=== PATIENT | female | born 1965 | race African-American/Black ===

== ENCOUNTER 2019-12-18 18:28 | Emergency (ER) | payer OTHER, SELFPAY ==
--- NOTE | 2019-12-18 18:41 | ED.GENADULT ---
HPI - General Adult General Chief complaint: Skin/Abscess/Foreign Body Stated complaint: insect bite Time Seen by Provider: 12/18/19 19:00 Source: patient Mode of arrival: ambulatory Limitations: no limitations History of Present Illness HPI narrative: 54-year-old female patient presents to the [facility] with complaints of multiple insect bites to the chest as well as the left arm. Patient states that the one on the left arm is swollen, warm and tender to the touch. Denies any chest pain or shortness of breath. Denies any fevers. Patient states that she got bit yesterday. Patient states she has tried taking Benadryl but continues to have itching to the area. Related Data Home Medications Medication Instructions Recorded Confirmed Flonase Allergy Relief 12/18/19 Singulair 12/18/19 amlodipine 12/18/19 atenolol 12/18/19 hydrochlorothiazide 12/18/19 loratadine 12/18/19 Allergies Allergy/AdvReac Type Severity Reaction Status Date / Time No Known Allergies Allergy Verified 05/18/17 14:10 Review of Systems Review of Systems: Narrative: CONSTITUTIONAL: Denies fever, chills, or sweats. EYES: Denies visual changes, redness, or discharge. ENT: Denies rhinorrhea, congestion, sore throat, or otalgia. CARDIOVASCULAR: Denies chest pain, palpitations, or edema. RESPIRATORY: Denies cough or dyspnea. GASTROINTESTINAL: Denies abdominal pain, nausea, vomiting, or diarrhea. GENITOURINARY: Denies dysuria or hematuria. SKIN: Denies rash or itching. Positive insect bite to chest and left arm MUSCULOSKELETAL: Denies back pain, joint pain, or myalgia. NEUROLOGIC: Denies headache, numbness, or weakness. PSYCHIATRIC: Denies anxiety or depression. [facility] Family History Family History Mother Hypertension Family history of diabetes mellitus in first degree relative Family history of lung cancer Father Hypertension Family history of diabetes mellitus in first degree relative Social History Social History Smoking status: Never smoker Second hand tobacco smoke exposure: No Alcohol intake: current Comments At the time of my signature I agree with nursing past medical history, surgical, social, and family history. There is no relevant family history pertinent to the presenting complaint. Exam Narrative: Exam Narrative: GENERAL: Well-appearing, well-nourished, and in no acute distress. HEAD: Normocephalic, atraumatic. EYES: PERRLA and EOMI. ENT: Nares clear, no rhinorrhea or epistaxis. Mucous membranes moist. Posterior pharynx with no erythema, tonsillectomy, exudates or lesions present. NECK: Supple. No lymphadenopathy CHEST: Clear to auscultation. No respiratory distress. Patient able talk in clear complete sentences. HEART: Regular rate and rhythm. No murmur heard. Normal peripheral pulses. ABDOMEN: Soft, nontender, nondistended, normal active bowel sounds. EXTREMITIES: Normal range of motion. No edema. SKIN: Warm, dry, no rash. Patient has multiple insect bites to the upper chest with raised wheals. There is another insect bite noted to the left upper extremity right above the bend of the elbow. There is surrounding erythema and warmth as well as swelling. The erythema measures approximately 14 to 15 cm. NEURO: No focal deficits. Alert and oriented x3. Course Vital Signs Vital signs: Vital Signs Temperature 36.6 C 12/18/19 18:49 Pulse Rate 78 12/18/19 18:49 Respiratory Rate 18 12/18/19 18:49 Blood Pressure 127/88 12/18/19 18:49 Pulse Oximetry 100 12/18/19 18:49 Temperature 36.6 C 12/18/19 18:49 Pulse Rate 78 12/18/19 18:49 Respiratory Rate 18 12/18/19 18:49 Blood Pressure 127/88 12/18/19 18:49 Pulse Oximetry 100 12/18/19 18:49 Vital signs reviewed. The patient has been informed that they may have pre-hypertension or Hypertension based on a BP reading in t
[2019-12-18 18:49] VITALS: BP 127/88; PULSE 78; RESP 18; TEMP 36.6; O2SAT 100
== END 2019-12-18 19:11 | disposition home or self-care (01) ==
PROVIDERS: Emergency Provider Nurse Practitioner Family; PCP Registered Nurse
DX: T63.484A Toxic effect of venom of other arthropod, undetermined, initial encounter (principal); L03.114 Cellulitis of left upper limb; L23.9 Allergic contact dermatitis, unspecified cause; I10 Essential (primary) hypertension
CPT/HCPCS: 99213; G0463

== ENCOUNTER 2020-09-17 09:44 | Emergency (ER) | payer OTHER, SELFPAY ==
--- NOTE | 2020-09-17 10:01 | ED.URI ---
HPI - URI/Sore Throat General Chief Complaint: Upper Respiratory Infection Stated Complaint: sinus infection Time Seen by Provider: 09/17/20 10:01 Source: patient and RN notes reviewed History of Present Illness HPI Narrative: Patient is a 55-year-old female who presents the urgent care with complaints of chronic allergies. Patient states that she does have chronic eyedrops and is currently out of her prescription eyedrops. Patient states she takes a daily allergy medication which does not seem to be improving symptoms. States the last 3 days have been terrible with the postnasal drainage and clear eye drainage. Patient denies of any new URI symptoms. Denies of any fever, chills, vomiting, cough, shortness of breath. No other acute complaints. No acute distress noted. Patient aware of the plan of care. Some parts of this dictation were generated by voice recognition software and may contain typographical and/or grammatical inaccuracies. Related Data Home Medications Medication Instructions Recorded Confirmed Flonase Allergy Relief 12/18/19 Singulair 12/18/19 amlodipine 5 mg PO DAILY 12/18/19 atenolol 50 mg PO DAILY 12/18/19 hydrochlorothiazide 25 mg PO DAILY 12/18/19 loratadine 12/18/19 Allergies Allergy/AdvReac Type Severity Reaction Status Date / Time No Known Allergies Allergy Verified 05/18/17 14:10 Review of Systems Review of Systems: Narrative: CONSTITUTIONAL: Denies fever, chills, or sweats. EYES: Denies visual changes, redness. Reports of bilateral eye irritation and watery eyes ENT: Reports of acute on chronic postnasal drainage CARDIOVASCULAR: Denies chest pain, palpitations, or edema. RESPIRATORY: Denies cough or dyspnea. GASTROINTESTINAL: Denies abdominal pain, nausea, vomiting, or diarrhea. GENITOURINARY: Denies dysuria or hematuria. SKIN: Denies rash or itching. MUSCULOSKELETAL: Denies back pain, joint pain, or myalgia. NEUROLOGIC: Denies headache, numbness, or weakness. All other systems reviewed are negative, except as documented in HPI. [facility] Family History Family History Mother Hypertension Family history of diabetes mellitus in first degree relative Family history of lung cancer Father Hypertension Family history of diabetes mellitus in first degree relative Social History Social History Smoking status: Never smoker Second hand tobacco smoke exposure: No Alcohol intake: current Comments At the time of my signature, I reviewed and agree with the nursing past medical, surgical, social, and family history. There is no relevant family history pertinent to the patient complaint. Exam Narrative: Exam Narrative: GENERAL: This is a well-nourished, well-developed patient, in no apparent distress. HEAD: normocephalic, atraumatic. EYES: PERRL. Sclera clear/white. Vision is grossly intact. Mild bilateral injected conjunctivo with clear bilateral drainage EARS: External ears normal, auditory canals clear and without drainage, TMs normal without perforation. Hearing grossly intact. NOSE: External nose normal with no obvious nasal discharge, nares without redness, no rhinorrhea. THROAT: Mucous membranes moist, posterior pharynx clear. Moderate postnasal drainage. NECK: Neck supple CARDIOVASCULAR: Regular rate and rhythm without murmurs, gallops, or rubs. RESPIRATORY: Clear to auscultation. Breath sounds equal bilaterally. No wheezes, rales, or rhonchi. SKIN: warm, intact with no suspicious lesions or rash, good texture and turgor. NEURO: awake, alert, and oriented to person, place and time. There were no obvious focal neurologic abnormalities. EXTREMITIES: No clubbing, cyanosis, or edema. Course Vital Signs Vital signs: Vital Signs Temperature 96.5 F L 09/17/20 10:05 Pulse Rate 82 09/17/20 10:05 Respiratory Rate 16 09/17/20 10:05 Blood Pressure 126/75
[2020-09-17 10:05] VITALS: BP 126/75; PULSE 82; RESP 16; TEMP 35.8; O2SAT 99
== END 2020-09-17 10:23 | disposition home or self-care (01) ==
PROVIDERS: Emergency Provider Nurse Practitioner Family; PCP Registered Nurse
DX: J30.9 Allergic rhinitis, unspecified (principal); I10 Essential (primary) hypertension
CPT/HCPCS: 99213; G0463

== ENCOUNTER 2021-03-10 10:40 | Emergency (ER) | payer OTHER, SELFPAY ==
--- NOTE | 2021-03-10 10:46 | ED.URI ---
HPI - URI/Sore Throat General Chief Complaint: Upper Respiratory Infection Stated Complaint: sinus drainage/fluid on right knee Source: patient and RN notes reviewed Mode of arrival: ambulatory History of Present Illness HPI Narrative: This is a 55-year-old female that presented to urgent care today with complaints of nasal congestion, frontal headache, itchy eyes, uncontrollable chronic productive cough with yellowish sputum and swollen right knee. Patient has had a history of chronic sinusitis as well is bursitis to that right knee. She also noted that she has an allergic reaction to Augmentin and what works best for her is azithromycin. She also noted that her knee occasionally swells and she is prescribed a anti-inflammatory. The patient denies SOB, CP, palpitation, extremity numbness, lightheadedness, dizziness, constipation, diarrhea, chills, or fever. MD elicited complaint: cough, rhinorrhea, nasal congestion and sinus pain Related Data Home Medications Medication Instructions Recorded Confirmed Flonase Allergy Relief 12/18/19 Singulair 12/18/19 amlodipine 5 mg PO DAILY 12/18/19 atenolol 50 mg PO DAILY 12/18/19 hydrochlorothiazide 25 mg PO DAILY 12/18/19 loratadine 12/18/19 Allergies Allergy/AdvReac Type Severity Reaction Status Date / Time No Known Allergies Allergy Verified 03/10/21 10:54 Review of Systems Review of Systems: A 14 organ system Review of Systems was performed and pertinent positives included in the HPI, otherwise remaining ROS is negative. [facility] Family History Family History Mother Hypertension Family history of diabetes mellitus in first degree relative Family history of lung cancer Father Hypertension Family history of diabetes mellitus in first degree relative Social History Social History Smoking status: Never smoker Second hand tobacco smoke exposure: No Alcohol intake: current Exam Narrative: GENERAL: This is a well-nourished, well-developed patient, in no apparent distress. HEAD: normocephalic, atraumatic. EYES: Reddened and watery eyes EARS: External ears normal, auditory canals clear and without drainage, TMs normal without perforation. Hearing grossly intact. NOSE: External nose normal with no obvious nasal discharge, nares without redness, no rhinorrhea. THROAT: Mucous membranes moist, posterior pharynx edema with erythematous. NECK: Neck supple, non-tender without lymphadenopathy, masses or thyromegaly. CARDIOVASCULAR: Regular rate and rhythm without murmurs, gallops, or rubs. RESPIRATORY: Clear to auscultation. Breath sounds equal bilaterally. No wheezes, rales, or rhonchi. GASTROINTESTINAL: Abdomen soft, non-tender, nondistended. Bowel sounds are active. No hepato-splenomegaly, or palpable masses. No guarding. SKIN: warm, intact with no suspicious lesions or rash, good texture and turgor. NEURO: awake, alert, and oriented to person, place and time. There were no obvious focal neurologic abnormalities. Steady gait EXTREMITIES: Normal range of motion. No edema. No calf tenderness. Negative Homans sign bilaterally. BACK: Nontender without deformity or crepitance. No flank tenderness. Course Vital Signs Vital signs: Vital Signs Temperature 97.9 F 03/10/21 10:48 Pulse Rate 74 03/10/21 10:48 Respiratory Rate 20 03/10/21 10:48 Blood Pressure 138/84 03/10/21 10:48 Pulse Oximetry 99 03/10/21 10:48 Temperature 97.9 F 03/10/21 10:48 Pulse Rate 74 03/10/21 10:48 Respiratory Rate 20 03/10/21 10:48 Blood Pressure 138/84 03/10/21 10:48 Pulse Oximetry 99 03/10/21 10:48 MDM - URI/Sore Throat Differential Diagnosis Differential diagnosis: Likely upper respiratory infection, sinusitis, bronchitis and pharyngitis Discharge Plan Discharge Clinical Impression: Effusion of knee joint right Sinusitis Qualifie
[2021-03-10 10:48] VITALS: BP 138/84; PULSE 74; RESP 20; TEMP 36.6; O2SAT 99
== END 2021-03-10 11:27 | disposition home or self-care (01) ==
PROVIDERS: Emergency Provider Nurse Practitioner; PCP Registered Nurse
DX: M25.461 Effusion, right knee (principal); J01.11 Acute recurrent frontal sinusitis
CPT/HCPCS: 99213; G0463

== ENCOUNTER 2023-06-18 13:15 | Outpatient (CLI) | payer OTHER, SELFPAY ==
--- NOTE | 2023-06-18 14:45 | NEURO_ITS ---
Impression: # Complains of numbness of hands. # Evolving sensory Carpal Tunnel Syndrome. # No ulnar neuropathy. # Normal needle/EMG. # Clinical correlation recommended. Nerve Conduction Studies Anti Sensory Summary Table Stim Site NR Peak (ms) P-T Amp (?V) Site1 Site2 Delta-P (ms) Dist (cm) Aníbal (m/s) Left Median Anti Sensory (2-3nd Digit) Wrist NR Wrist 2-3nd Digit 14.0 Wrist 3.9 11.3 Wrist 2-3nd Digit 14.0 Right Median Anti Sensory (2-3nd Digit) Wrist 3.8 49.6 Wrist 2-3nd Digit 3.8 14.0 37 Wrist 3.9 61.0 Wrist 2-3nd Digit 3.8 14.0 37 Left Radial Anti Sensory (Base 1st Digit) Wrist 2.1 16.7 Wrist Base 1st Digit 2.1 0.0 Right Radial Anti Sensory (Base 1st Digit) Wrist 2.4 14.0 Wrist Base 1st Digit 2.4 0.0 Left Ulnar Anti Sensory (5th Digit) Wrist 2.9 20.4 Wrist 5th Digit 2.9 14.0 48 Right Ulnar Anti Sensory (5th Digit) Wrist 2.9 26.4 Wrist 5th Digit 2.9 14.0 48 Motor Summary Table Stim Site NR Onset (ms) O-P Amp (mV) Site1 Site2 Delta-0 (ms) Dist (cm) Aníbal (m/s) Left Median Motor (Abd Poll Brev) Wrist 3.8 8.8 Elbow Wrist 6.3 30.0 48 Elbow 10.1 4.4 Right Median Motor (Abd Poll Brev) Wrist 3.9 6.6 Elbow Wrist 5.9 27.0 46 Elbow 9.8 4.3 Left Ulnar Motor (Abd Dig Minimi) Wrist 2.8 7.0 A Elbow Wrist 4.9 28.0 57 A Elbow 7.7 5.6 Right Ulnar Motor (Abd Dig Minimi) Wrist 3.0 7.5 A Elbow Wrist 5.8 32.0 55 A Elbow 8.8 5.2 F Wave Studies NR F-Lat (ms) L-R F-Lat (ms) Left Median (Mrkrs) (Abd Poll Brev) 31.04 0.13 Right Median (Mrkrs) (Abd Poll Brev) 31.17 0.13 Left Ulnar (Mrkrs) (Abd Dig Min) 30.47 1.33 Right Ulnar (Mrkrs) (Abd Dig Min) 31.80 1.33 EMG Side Muscle Nerve Root Ins Act Fibs Amp Dur Recrt Comment Right 1stDorInt Ulnar C8-T1 Nml Nml Nml Nml Nml Right Ext Indicis Radial (Post Int) C7-8 Nml Nml Nml Nml Nml Right Ext Digitorum Radial (Post Int) C7-8 Nml Nml Nml Nml Nml Right BrachioRad Radial C5-6 Nml Nml Nml Nml Nml Right PronatorTeres Median C6-7 Nml Nml Nml Nml Nml Right Abd Poll Brev Median C8-T1 Nml Nml Nml Nml Nml Left 1stDorInt Ulnar C8-T1 Nml Nml Nml Nml Nml Left Ext Indicis Radial (Post Int) C7-8 Nml Nml Nml Nml Nml Left Ext Digitorum Radial (Post Int) C7-8 Nml Nml Nml Nml Nml Left BrachioRad Radial C5-6 Nml Nml Nml Nml Nml Left PronatorTeres Median C6-7 Nml Nml Nml Nml Nml Left Abd Poll Brev Median C8-T1 Nml Nml Nml Nml Nml MTDD
== END 2023-06-18 13:16 | disposition home or self-care (01) ==
LOC: ANHNEURO 13:17
PROVIDERS: PCP Registered Nurse; Visit Provider Registered Nurse
DX: G56.03 Carpal tunnel syndrome, bilateral upper limbs (principal)
CPT/HCPCS: 95886; 95911

== ENCOUNTER 2024-10-03 08:45 | Emergency (ER) | payer OTHER, SELFPAY ==
[2024-10-03 08:54] VITALS: BP 127/75; PULSE 97; RESP 19; TEMP 36.5; O2SAT 99
--- NOTE | 2024-10-03 09:18 | ED.URI ---
HPI - URI/Sore Throat General Chief Complaint: Upper Respiratory Infection Stated Complaint: Sinus Time Seen by Provider: 10/03/24 09:18 Source: patient, RN notes reviewed and old records reviewed Mode of arrival: ambulatory Limitations: no limitations History of Present Illness HPI Narrative: 59-year-old female presents to the [facility] with 4 day history of sinus congestion, drainage, feeling that her ears feel full. Reports sinus pressure. Has taken [id number] and prescribed medications. Denies fevers. Treatments prior to arrival: cold medicine Related Data Home Medications ?Medication ?Instructions ?Recorded ?Confirmed ?Last Taken ?Type Flonase Allergy Relief 12/18/19 03/10/21 History Singulair 12/18/19 Unknown History amlodipine 5 mg PO DAILY 12/18/19 03/10/21 History 5 mg atenolol 50 mg PO DAILY 12/18/19 03/10/21 History 50 mg loratadine 12/18/19 03/10/21 History amlodipine 5 mg tablet mg 10/03/24 Unknown History azelastine 137 mcg (0.1 %) nasal intranasal 10/03/24 Unknown History spray hydrochlorothiazide 25 mg tablet mg 10/03/24 Unknown History losartan 100 mg tablet mg 10/03/24 Unknown History metformin 500 mg tablet mg 10/03/24 Unknown History rosuvastatin 40 mg tablet mg 10/03/24 Unknown History Allergies Allergy/AdvReac Type Severity Reaction Status Date / Time unknown antibiotic Allergy Mild Unknown Uncoded 10/03/24 09:54 Review of Systems Review of Systems: All systems reviewed & are unremarkable except as noted in HPI and below Constitutional: Constitutional: Reports no additional constitutional complaints ENT: Reports as per HPI Cardiovascular: Cardiovascular: Reports no additional cardiovascular complaints, Denies chest pain and Denies dyspnea Respiratory: Respiratory: Reports no additional respiratory complaints, Denies chest congestion, Denies cough and Denies dyspnea Musculoskeletal: Musculoskeletal: Reports no additional musculoskeletal complaints Integumentary/Breasts: Skin/Breast: Reports system reviewed and no additional complaints, except as docu PMFSH Past Medical History Medical History (Updated 10/03/24 @ 18:41 by Lucy Starks APRN) History of high cholesterol Hypertension Family History Family History Mother Hypertension Family history of diabetes mellitus in first degree relative Family history of lung cancer Father Hypertension Family history of diabetes mellitus in first degree relative Social History Social History Smoking status: Never smoker Second hand tobacco smoke exposure: No Alcohol intake: current Comments At the time of my signature, I reviewed and agree with the nursing past medical, surgical, social, and family history. There is no relevant family history pertinent to the patient complaint. Exam Const: General: cooperative, healthy appearing, comfortable, no acute distress, well developed, alert and well nourished Nutritional Appearance: well nourished Orientation/consciousness: patient oriented x3 Limitations: no limitations HENMT: Head: normal to inspection Ears: hearing grossly normal bilaterally, external ears normal, EAC's normal, mastoids normal, no periauricular adenopathy and TM abnormal with fluid behind the TM bilateral; not bulging Face/Nose/Sinus: Normal external nose present, Normal nasal mucous membranes and turbinates present, Nasal discharge present clear bilateral, normal facial exam and face symmetric Mouth: Yes Normal oral and palatal mucosa present, Yes lip normal, Yes tongue normal and Yes moist mucous membranes Throat: posterior oropharynx normal, uvula midline, postnasal drainage and no uvular edema Eyes: General: appearance normal, both eyes and all related structures Alignment and Position: alignment normal Neck: Neck: normal visual inspection, full ROM, no lymphadenopathy and no meningeal signs Chest: Chest palpation & inspection: normal inspection of the chest Resp: Effort & Inspection: normal respiratory effort and able to speak in complete sentences Auscultation: clear to auscultation bilaterally, no crackles, no rales, no rhonchi and no wheezes Cardio: Rate: regular rate Skin: General skin exam: normal color and no rashes or lesions noted Neuro: General: patient oriented x3, gait normal, moves all extremities and no meningeal signs Cognition (Neuro): normal cognition Speech: normal speech Gait exam (Neuro): Normal gait present Extrem: General: normal to inspection, full ROM, capillary refill normal and normal gait Psych: Appearance: grossly normal and well kempt Mental Status: mental status grossly normal Speech and movement: Normal speech and movement present and Clear speech present Affect: normal affect Attitude: cooperative Course Course Level of Care: Express Care Visit Vital Signs Vital signs: Vital Signs Temperature 97.7 F 10/03/24 08:54 Pulse Rate 97 10/03/24 08:54 Respiratory Rate 19 10/03/24 08:54 Blood Pressure 127/75 10/03/24 08:54 Pulse Oximetry 99 10/03/24 08:54 Oxygen Delivery Room Air 10/03/24 08:54 Temperature 97.7 F 10/03/24 08:54 Pulse Rate 97 10/03/24 08:54 Respiratory Rate 19 10/03/24 08:54 Blood Pressure 127/75 10/03/24 08:54 Pulse Oximetry 99 10/03/24 08:54 Oxygen Delivery Room Air 10/03/24 08:54 Reviewed MDM - URI/Sore Throat MDM Narrative Medical decision making narrative: Patient sitting comfortably in exam room. Nontoxic, vitals stable. Patient in no acute distress. Patient presents with 4 day history of sinus congestion. No acute findings other than postnasal drainage and clear rhinorrhea. Patient's flu and COVID negative Patient appropriate For outpatient treatment and follow-up Discharge instructions reviewed with patient, as well as provided in writing per nursing staff. The instructions also include specific and strict return/GO TO THE ER as well as f/u information. All questions have been answered, and the patient deny any further questions with discharge and discharge plan. Some parts of this dictation were generated by voice recognition software and may contain typographical and/or grammatical inaccuracies. Differential Diagnosis Differential diagnosis: Likely upper respiratory infection, otitis media, sinusitis, viral infection, bronchitis, influenza and pharyngitis Lab Data Labs: Lab Results 10/03/24 Range/Units 09:51 POC Influenza A Ag Negative (Negative) POC Influenza B Ag Negative (Negative) POC SARS CoV-2 Ag Negative (Negative) Reviewed Critical Care Time Critical Care Time Critical Care Time: No Discharge Plan Discharge Clinical Impression: Sinusitis Qualifiers: Sinusitis location: unspecified location Chronicity: acute Recurrence: not specified as recurrent Qualified Code(s): J01.90 - Acute sinusitis, unspecified Patient Disposition: Home, Self-Care Condition: Stable Instructions: Antibiotic Form, Sinusitis (ED) Additional Instructions: Your rapid COVID test were negative Your rapid flu test was negative Your symptoms are likely due to a viral illness, which is not treated with antibiotics. Typically viral infections last 7-10 days, can linger for couple of weeks. It is very important to treat your symptoms. Drink plenty of water, Gatorade, Pedialyte, ice pops or Jell-O. -Alternate Tylenol and Motrin per package directions for fever or pain. You can alternate every 4 hours -Antihistamine medication such as Zyrtec/Claritin/Nallely during the day can help improve symptoms. -doing daily nasal irrigations can help relieve pressure your sinuses. Things like a Neti pot or NeilMed nasal irrigation. -Use Flonase twice a day for 5 days then daily to help reduce the inflammation and dry up your sinuses. -You can also use Mucinex. Be sure to drink plenty of water with this medication at least 8 ounces with every dose and it is important to drink 8 to 10 glasses of water per day. Water is a natural decongestant -Eat and drink things that are easy to swallow, like tea or soup, or popsicles. -Oral rinses such as: Salt water gargles and/or may use topical anesthetic (eg. Chloraseptic spray) or lozenges to relieve dryness or throat pain). -Frequent hand washing or hand tank systems maintainer is one of the best ways to prevent spread of infection. -Using a vaporizer or humidifier at night will also help thin secretions and help with coughing up phlegm. -Follow up with primary care provider in 7-10 days if condition is not improving - For new or worsening symptoms go directly to the nearest ER Patient Language: Macedonian Prescriptions: New methylprednisolone [Medrol (Ari)] 4 mg tablets,dose pack See Rx Instructions PO .COMPLEX Qty: 21 0RF Rx Instructions: orally per package directions No Action metformin 500 mg tablet amlodipine 5 mg tablet hydrochlorothiazide 25 mg tablet losartan 100 mg tablet rosuvastatin 40 mg tablet azelastine 137 mcg (0.1 %) spray,non-aerosol INTRANASAL Flonase Allergy Relief Singulair amlodipine 5 mg PO DAILY atenolol 50 mg PO DAILY loratadine Follow-up/Referrals: Terese,SALMA Magdaleno [Primary Care Provider] - 2 Weeks ([facility] care follow up ) Stand Alone Forms: Work/School Release IP Time of Disposition: 09:42
[2024-10-03 09:52] LABS: EDCOVIDSCREEN Negative (Negative); EDINFLUASCREEN Negative (Negative); EDINFLUBSCREEN Negative (Negative)
== END 2024-10-03 09:55 | disposition home or self-care (01) ==
PROVIDERS: Emergency Provider Nurse Practitioner; PCP Registered Nurse
DX: J01.90 Acute sinusitis, unspecified (principal); I10 Essential (primary) hypertension; Z79.899 Other long term (current) drug therapy; Z79.84 Long term (current) use of oral hypoglycemic drugs; Z20.822 Contact with and (suspected) exposure to COVID-19
CPT/HCPCS: 87426; 87804; 99213; G0463